=== PATIENT | female | born 1955 | race Caucasian/White ===

== ENCOUNTER → 2018-10-16 | Outpatient (CLI) | payer OTHER, SELFPAY ==
[2013-09-03 09:57] VITALS: BMI 43.4
[2018-10-16 12:43] LABS: Hemoglobin A1c 6.5 % (4.2-6.3)
[2018-10-16 12:46] LABS: AST(SGOT) 33 U/L (15-37); Alanine Aminotransfer ALT/SGPT 48 U/L (13-56); Alkaline Phosphatase 72 U/L (45-117); Anion Gap 9 (5-15); BUN 23 mg/dL (7-18); BUN/Creat Ratio 26.3 RATIO (10-20); Chloride 102 mmol/L (98-107); Cholesterol 209 mg/dL (200); Creatinine, Serum 0.87 mg/dL (0.55-1.02); EST Glomerular Filtration Rate 70 mL/min (>60); Est Glom Filt Rate - Afr Amer 84 mL/min (>60); Glucose 118 mg/dL (74-106); High Density Lipoprotein 76 mg/dL; Potassium 3.9 mmol/L (3.5-5.1); Sodium Level 141 mmol/L (136-145); T4 Total, Thyroxin 13.2 ug/dL (4.8-13.9); Thyroid Stim Hormone (TSH) 0.97 uIU/mL (0.358-3.74); Triglycerides 152 mg/dL; Very Low Density Lipoprotein 30 mg/dL (5-40)
[2018-10-16 12:47] LABS: Creatinine, Urine (random) < 13.00 mg/dL (NO RANGE EST.); Microalbumin,Random Urine < 5.0 mg/L (NO RANGE EST.)
== END | disposition home or self-care (01) ==
LOC: MFPLAB 10:55
PROVIDERS: Visit Provider Family Medicine
DX: E11.9 Type 2 diabetes mellitus without complications (principal); E03.9 Hypothyroidism, unspecified; I10 Essential (primary) hypertension
CPT/HCPCS: 36415; 80048; 80061; 80076; 82043; 82570; 83036; 84436; 84443

== ENCOUNTER → 2019-03-20 07:12 | Outpatient (CLI) | payer OTHER, SELFPAY ==
[2013-09-03 09:57] VITALS: BMI 43.4
[2019-03-20 10:35] LABS: Hemoglobin A1c 6.1 % (4.2-6.3)
[2019-03-20 10:47] LABS: Anion Gap 7 (5-15); BUN 28 mg/dL (7-18); BUN/Creat Ratio 39.4 RATIO (10-20); Calcium,Total 9.5 mg/dL (8.5-10.1); Chloride 105 mmol/L (98-107); Creatinine, Serum 0.71 mg/dL (0.55-1.02); EST Glomerular Filtration Rate 89 mL/min (>60); Est Glom Filt Rate - Afr Amer 107 mL/min (>60); Glucose 120 mg/dL (74-106); Potassium 3.6 mmol/L (3.5-5.1); Sodium Level 140 mmol/L (136-145)
== END ==
PROVIDERS: Family Provider Family Medicine; PCP Family Medicine; Referring Provider Family Medicine; Visit Provider Family Medicine
DX: E11.9 Type 2 diabetes mellitus without complications (principal); I10 Essential (primary) hypertension
CPT/HCPCS: 36415; 80048; 83036

== ENCOUNTER → 2020-09-23 10:42 | Outpatient (CLI) | payer OTHER, SELFPAY ==
[2013-09-03 09:57] VITALS: BMI 43.4
[2020-09-23 12:23] LABS: Absolute Neutrophil Count 2.5 X10^3/uL (2.0-7.7); Basophil# 0.03 X10^3/uL; Basophil% 0.7 % (0-1); Eosinophil# 0.08 X10^3/uL; Eosinophils% 1.9 % (0-5); Hemoglobin 13.8 g/dL (12.0-15.0); Lymphocyte % 32.7 % (19-41); Mean Corp Hgb Conc 31.4 g/dL (32-36); Mean Corpuscular Hgb 28.9 pg (27.0-32.0); Mean Corpuscular Volume 92.1 fL (81-99); Mean Platelet Vol. 11.3 fl (6.2-12.0); Monocyte# 0.27 X10^3/uL; Monocyte% 6.3 % (0-10); NRBC Flagged by Analyzer 0 % (0-5); Neutrophil # 2.49 X10^3/uL (2.7-7.7); Neutrophil % 58.2 % (47-70); Platelet Count 163 K/mm3 (150-450); RBC Distribution Width CV 13.5 % (11.6-14.6); RBC Distribution Width SD 46.3 fl (35.1-43.9); Red Blood Count 4.78 M/mm3 (4.2-5.4); White Blood Count 4.3 K/mm3 (4.4-11.0)
[2020-09-23 12:44] LABS: Vitamin B12 355 pg/mL (211-911)
[2020-09-23 12:47] LABS: Hemoglobin A1c 6.4 % (3.8-5.6)
[2020-09-23 13:05] LABS: ALB/GLOB Ratio 1.1 RATIO (0.9-2.4); AST(SGOT) 44 U/L (15-37); Alanine Aminotransfer ALT/SGPT 57 U/L (13-56); Albumin, Serum 3.8 g/dL (3.2-5.0); Alkaline Phosphatase 75 U/L (45-117); Anion Gap 4 (5-15); BUN 22 mg/dL (7-18); BUN/Creat Ratio 30.3 RATIO (10-20); Chloride 106 mmol/L (98-107); Cholesterol 211 mg/dL (200); Creatinine, Serum 0.73 mg/dL (0.55-1.02); EST Glomerular Filtration Rate 86 mL/min (>60); Est Glom Filt Rate - Afr Amer 104 mL/min (>60); Globulin 3.6 g/dL (2.2-4.2); Glucose 117 mg/dL (74-106); High Density Lipoprotein 69 mg/dL; Potassium 3.8 mmol/L (3.5-5.1); Protein, Total 7.4 g/dL (6.4-8.2); Sodium Level 141 mmol/L (136-145); Thyroid Stim Hormone (TSH) 0.62 uIU/mL (0.358-3.74); Triglycerides 128 mg/dL; Very Low Density Lipoprotein 26 mg/dL (5-40)
== END ==
PROVIDERS: PCP Family Medicine; Referring Provider Family Medicine; Visit Provider Family Medicine
DX: E11.9 Type 2 diabetes mellitus without complications (principal); E03.9 Hypothyroidism, unspecified
CPT/HCPCS: 36415; 80053; 80061; 82607; 83036; 84443; 85025

== ENCOUNTER → 2021-03-05 08:07 | Outpatient (CLI) | payer OTHER, SELFPAY ==
[2021-03-05 10:32] LABS: Absolute Lymphocyte Count 1.44 X10^3/uL (0.83-4.51); Absolute Neutrophil Count 2.3 X10^3/uL (2.0-7.7); Basophil# 0.04 X10^3/uL; Eosinophil# 0.07 X10^3/uL; Eosinophils% 1.7 % (0-5); Hematocrit 41.7 % (37-47); Hemoglobin 13.1 g/dL (12.0-15.0); Lymphocyte # 1.44 X10^3/ul (0.83-4.51); Lymphocyte % 34.8 % (19-41); Mean Corp Hgb Conc 31.4 g/dL (32-36); Mean Corpuscular Hgb 29.1 pg (27.0-32.0); Mean Corpuscular Volume 92.7 fL (81-99); Mean Platelet Vol. 11.7 fl (6.2-12.0); Monocyte# 0.25 X10^3/uL; NRBC Flagged by Analyzer 0 % (0-5); Neutrophil # 2.33 X10^3/uL (2.7-7.7); Neutrophil % 56.3 % (47-70); Platelet Count 157 K/mm3 (150-450); RBC Distribution Width CV 13.4 % (11.6-14.6); RBC Distribution Width SD 46.4 fl (35.1-43.9); White Blood Count 4.1 K/mm3 (4.4-11.0)
[2021-03-05 10:49] LABS: Hemoglobin A1c 6.5 % (3.8-5.6)
[2021-03-05 10:50] LABS: Vitamin B12 284 pg/mL (211-911)
[2021-03-05 10:57] LABS: ALB/GLOB Ratio 0.9 RATIO (0.9-2.4); AST(SGOT) 29 U/L (15-37); Alanine Aminotransfer ALT/SGPT 45 U/L (13-56); Albumin, Serum 3.5 g/dL (3.2-5.0); Alkaline Phosphatase 78 U/L (45-117); Anion Gap 6 (5-15); BUN 20 mg/dL (7-18); BUN/Creat Ratio 27.1 RATIO (10-20); Calcium,Total 9.2 mg/dL (8.5-10.1); Chloride 103 mmol/L (98-107); Cholesterol 178 mg/dL (200); Creatinine, Serum 0.74 mg/dL (0.55-1.02); EST Glomerular Filtration Rate 84 mL/min (>60); Est Glom Filt Rate - Afr Amer 102 mL/min (>60); Glucose 122 mg/dL (74-106); High Density Lipoprotein 61 mg/dL; Potassium 3.8 mmol/L (3.5-5.1); Protein, Total 7.5 g/dL (6.4-8.2); Sodium Level 140 mmol/L (136-145); Thyroid Stim Hormone (TSH) 1.19 uIU/mL (0.358-3.74); Triglycerides 101 mg/dL; Very Low Density Lipoprotein 20 mg/dL (5-40)
== END ==
PROVIDERS: PCP Family Medicine; Referring Provider Family Medicine; Visit Provider Family Medicine
DX: E03.9 Hypothyroidism, unspecified (principal); E11.9 Type 2 diabetes mellitus without complications
CPT/HCPCS: 36415; 80053; 80061; 82607; 83036; 84443; 85025

== ENCOUNTER → 2021-10-05 | Outpatient (CLI) | payer OTHER, SELFPAY ==
[2021-10-05 17:44] LABS: Absolute Lymphocyte Count 1.68 X10^3/uL (0.83-4.51); Absolute Neutrophil Count 3.2 X10^3/uL (2.0-7.7); Basophil# 0.02 X10^3/uL; Basophil% 0.4 % (0-1); Eosinophil# 0.05 X10^3/uL; Eosinophils% 0.9 % (0-5); Hematocrit 43.4 % (37-47); Hemoglobin 13.7 g/dL (12.0-15.0); Lymphocyte # 1.68 X10^3/ul (0.83-4.51); Lymphocyte % 31.3 % (19-41); Mean Corp Hgb Conc 31.6 g/dL (32-36); Mean Corpuscular Hgb 28.7 pg (27.0-32.0); Mean Platelet Vol. 11.3 fl (6.2-12.0); Monocyte# 0.36 X10^3/uL; Monocyte% 6.7 % (0-10); NRBC Flagged by Analyzer 0 % (0-5); Neutrophil # 3.24 X10^3/uL (2.7-7.7); Neutrophil % 60.3 % (47-70); Platelet Count 170 K/mm3 (150-450); RBC Distribution Width CV 13.7 % (11.6-14.6); RBC Distribution Width SD 46.6 fl (35.1-43.9); Red Blood Count 4.77 M/mm3 (4.2-5.4); White Blood Count 5.4 K/mm3 (4.4-11.0)
[2021-10-05 18:08] LABS: Hemoglobin A1c 6.7 % (3.8-5.6)
[2021-10-05 18:18] LABS: AST(SGOT) 33 U/L (15-37); Alanine Aminotransfer ALT/SGPT 46 U/L (13-56); Albumin, Serum 3.7 g/dL (3.2-5.0); Alkaline Phosphatase 70 U/L (45-117); Anion Gap 5 (5-15); BUN 16 mg/dL (7-18); BUN/Creat Ratio 23.3 RATIO (10-20); Calcium,Total 9.2 mg/dL (8.5-10.1); Chloride 103 mmol/L (98-107); Cholesterol 204 mg/dL (200); Creatinine, Serum 0.69 mg/dL (0.55-1.02); EST Glomerular Filtration Rate 91 mL/min (>60); Est Glom Filt Rate - Afr Amer 110 mL/min (>60); Globulin 3.8 g/dL (2.2-4.2); Glucose 102 mg/dL (74-106); High Density Lipoprotein 58 mg/dL; Potassium 3.8 mmol/L (3.5-5.1); Protein, Total 7.5 g/dL (6.4-8.2); Sodium Level 138 mmol/L (136-145); Thyroid Stim Hormone (TSH) 0.69 uIU/mL (0.358-3.74); Triglycerides 104 mg/dL; Very Low Density Lipoprotein 21 mg/dL (5-40)
[2021-10-05 18:22] LABS: Vitamin B12 332 pg/mL (211-911)
== END | disposition home or self-care (01) ==
LOC: MTLAB 14:46
PROVIDERS: PCP Family Medicine; Referring Provider Family Medicine; Visit Provider Family Medicine
DX: E11.9 Type 2 diabetes mellitus without complications (principal); E03.9 Hypothyroidism, unspecified
CPT/HCPCS: 36415; 80053; 80061; 82607; 83036; 84443; 85025

== ENCOUNTER 2021-12-16 16:20 | Emergency (ER) | payer MEDICARE, SELFPAY ==
[2021-12-16 16:22] VITALS: BP 175/79; PULSE 66; RESP 14; TEMP 35.7; O2SAT 98; BMI 44.3
--- NOTE | 2021-12-16 16:42 | ED.VIS.LOWEX ---
HPI History of Present Illness Chief Complaint: Lower Extremity Injury Informant: patient Narrative Narrative: Presents with some left leg intermittent swelling and pain. This has been going on a little while. But she states she has had a knee replacement the left side. She had a significant tendon injury back in May. She just thought this was a healing process. She talked to her harvest supervisor about this and saw her. Her harvest supervisor was concerned so she ordered an ultrasound which does show positive posterior tibial vein with an acute DVT. There is also a superficial saphenous vein that has a chronic superficial thrombophlebitis. No chest pain no shortness of breath. Otherwise the patient feels fine. It does get worse if she is on her legs for a long time better if she rests. PFSH PFSH Home Medications atenolol 25 mg tablet 25 mg PO DAILY 03/21/13 [History Last Taken 09/03/13 06:00] furosemide 40 mg tablet 40 mg PO DAILY 03/21/13 [History Last Taken 07/08/13 08:00] levothyroxine 88 mcg tablet 88 mcg PO DAILY 03/21/13 [History Last Taken 07/09/13 04:00] multivitamin with folic acid 400 mcg tablet (Thera) 1 tab PO DAILY 03/21/13 [History Last Taken 07/08/13 08:00] oxycodone 20 mg tablet,crush resistant,extended release 12 hr (OxyContin) 20 mg PO Q12H ##30 07/10/13 [Rx Last Taken Unknown] oxycodone-acetaminophen 5 mg-325 mg tablet 1 - 2 tab PO Q4H PRN PRN PAIN ##60 07/10/13 [Rx Last Taken Unknown] montelukast 10 mg tablet 10 mg PO DAILY 09/03/13 [History Last Taken Unknown] naproxen sodium 220 mg tablet (Aleve) 2 tab PO BID 09/03/13 [History Last Taken Unknown] apixaban 5 mg tablet (Eliquis) 5 mg PO BID #74 tabs 12/16/21 [Rx Last Taken Unknown] Allergy/AdvReac Type Severity Reaction Status Date / Time latex Allergy Rash Verified 12/16/21 16:21 Surgical History (Updated 12/16/21 @ 16:46 by Ashlyn Rodriguez) Hx of appendectomy Hx of hysterectomy Hx of toe surgery Hx of total knee replacement Social History Smoking Status: Never smoker ROS ROS ED Constitutional Constitutional ED: Denies fever(s) or subjective ENT ENT ED: Denies rhinorrhea or sore throat Cardiovascular Cardiovascular: Denies chest pain, palpitations or racing heartbeat Respiratory/Chest Respiratory/Chest: Denies cough, dyspnea or dyspnea on exertion Gastrointestinal Gastrointestinal: Denies nausea or vomiting Genitourinary Genitourinary ED: Denies hematuria Musculoskeletal Musculoskeletal: Reports other Details: Left leg pain as in history of present illness. Integumentary Denies Abrasions or rash Neurologic Neurologic: Denies paresthesias or weakness Hematologic/Lymphatic Hematologic/Lymphatic: Denies easy bleeding or easy bruising Allergic/Immunologic Allergic/Immunologic ED: Denies urticaria EXAM Physical Exam Const Vital Signs: 12/16/21 16:22 Temperature 96.3 F L Temperature Source Temporal Pulse Rate 66 Respiratory Rate 14 Blood Pressure 175/79 H Blood Pressure Mean 111 Pulse Ox 98 Oxygen Delivery Method Room Air Positive well nourished and well developed General Appearance ED: well developed and NAD HEENT Reports moist mucous membranes atraumatic Resp normal respiratory effort Cardio regular rate Extremity normal to inspection Extremity Narrative: There is no erythema warmth or notable swelling. No distended veins. She does have some mild tenderness in the posterior calf but I do not feel a cord. No notable effusion. Pulses are normal. Neuro Sensorium / Orientation: alert Psych mental status grossly normal Skin no wounds MDM MDM MDM Narrative Medical decision making narrative: I reviewed the ultrasound. We discussed options. This is a below the knee DVT. But she has some risks with some recent injury and relative immobility. She is also having symptoms related to this. We will initiate therapy. This will need repeat ultrasound to make sure it resolves. We discussed the risks of anticoagulation including head injury and evaluations for this. We discussed increased bleeding. We discussed having repeat ultrasounds as they will need to follow this closely. First dose will be given here. Discharge Plan Triage Chief Complaint: Lower Extremity Injury ED Provider: Koffi Alvarenga Dx/Rx/DC Orders Clinical Impression: Acute deep vein thrombosis (DVT) of left lower extremity Instructions: ED Deep Vein Thrombosis (DVT) Prescriptions: New Eliquis 5 mg tablet 5 mg PO BID Qty: 74 0RF Rx Instructions: 10 mg twice a day for the first week. Then 5 mg twice a day. No Action furosemide 40 MG tablet 40 mg PO DAILY Label Comments: WATER PILL atenolol 25 MG tablet 25 mg PO DAILY Label Comments: BLOOD PRESSURE levothyroxine 88 MCG tablet 88 mcg PO DAILY Label Comments: THYROID multivitamin with folic acid [Thera] 1 TABLET tablet 1 tab PO DAILY Label Comments: SUPPLEMENT oxycodone-acetaminophen 1 TABLET tablet 1 - 2 tab PO Q4H PRN PRN (Reason: PAIN) Qty: 60 0RF Label Comments: PAIN oxycodone [OxyContin] 20 MG tablet 20 mg PO Q12H Qty: 30 0RF Label Comments: PAIN naproxen sodium [Aleve] 220 MG tablet 2 tab PO BID montelukast 10 MG tablet 10 mg PO DAILY Primary Care Provider: Mildred Sandoval Referrals: Mildred Sandoval MD [Primary Care Provider] - 3-5 Days Disposition Disposition: Home, Self Care
[2021-12-16] MEDS: APIXABAN 5 MG TABLET 10 MG PO (16:55)
== END 2021-12-16 16:56 | disposition home or self-care (01) ==
PROVIDERS: Emergency Provider Emergency Medicine; PCP Family Medicine; Visit Provider Emergency Medicine
DX: I82.442 Acute embolism and thrombosis of left tibial vein (principal); Z96.652 Presence of left artificial knee joint; Z79.01 Long term (current) use of anticoagulants
CPT/HCPCS: 93971; 99281

== ENCOUNTER → 2021-12-16 | Outpatient (CLI) | payer MEDICARE, SELFPAY ==
--- NOTE | 2021-12-16 15:31 | VDLE_ITS ---
Reason For Study: LLE Pain RIGHT LEFT CFV is compressible, spontaneous, phasic, GSV is normal. competent and demonstrates normal CFV is compressible, spontaneous, phasic, augmentation. competent, and demonstrates normal Procedure augmentation. This is a venous duplex using B-mode, color FV is compressible, spontaneous, phasic, flow and spectral Doppler. competent and demonstrates normal Exam performed in department. augmentation. A preliminary report was called and/or faxed POP V is compressible, spontaneous, phasic, to Dr. Wong. competent and demonstrates normal augmentation. T/P Trunk is compressible. LT PerV is compressible. Lt PTV is dilated and non compressible at mid calf consistent with acute DVT Lt SSV is partially compressible with bright intraluminal echoes consistent with chronic SVT. VL/Venous Duplex US, Unilateral Interpretation Summary Acute deep vein thrombosis is noted in the left posterior tibial vein. The ulises maribell of the left lower extremity deep venous system is patent and compressible. Valvular compete nce appears intact within the proximal deep venous system on the left . The left great saphenous v ein appears patent and compressible segmentally. Chronic venous changes are noted in the left smal l saphenous vein, which is partially compressible and demonstrates bright intraluminal echogenici ty. Ordering Physician: Yvette Wong Referring Physician: Mildred Sandoval Performed By: Fany Lopes, TIPCS, RVT
== END | disposition home or self-care (01) ==
LOC: CVS 15:29
PROVIDERS: PCP Family Medicine; Referring Provider Podiatrist; Visit Provider Podiatrist
DX: M79.605 Pain in left leg (principal); R60.0 Localized edema
CPT/HCPCS: 93971

== ENCOUNTER → 2022-03-03 | Outpatient (CLI) | payer MEDICARE, SELFPAY ==
--- NOTE | 2022-03-03 13:25 | VDLE_ITS ---
Reason For Study: HX of DVT RIGHT LEFT CFV is compressible, spontaneous, phasic, GSV is normal. competent and demonstrates normal CFV is compressible, spontaneous, phasic, augmentation. competent, and demonstrates normal Procedure augmentation. This is a venous duplex using B-mode, color FV is compressible, spontaneous, phasic, flow and spectral Doppler. competent and demonstrates normal Exam performed in department. augmentation. The exam was diagnostic. POP V is compressible, spontaneous, phasic, A preliminary report was called and/or faxed competent and demonstrates normal to Dr. Sandoval. augmentation. T/P Trunk is compressible. LT PTV is partially compressible with areas of mixed echogenicity and decreased spontaneity. LT PerV is compressible. VL/Venous Duplex US, Unilateral Interpretation Summary Chronic deep venous thrombosis left posterior tibial vein. Patent and compressible left great saphenous vein Normal flow patterns right common femoral vein Improvement is noted from the previous examination of December 16, 2021 Ordering Physician: Mildred Sandoval Referring Physician: Mildred Sandoval Performed By: Mg Beyer RVT
[2022-03-03 15:12] LABS: Absolute Lymphocyte Count 1.72 X10^3/uL (0.83-4.51); Absolute Neutrophil Count 3.4 X10^3/uL (2.0-7.7); Basophil# 0.03 X10^3/uL; Basophil% 0.5 % (0-1); Eosinophil# 0.06 X10^3/uL; Eosinophils% 1.1 % (0-5); Hematocrit 43.1 % (37-47); Hemoglobin 13.9 g/dL (12.0-15.0); Lymphocyte # 1.72 X10^3/ul (0.83-4.51); Lymphocyte % 30.6 % (19-41); Mean Corp Hgb Conc 32.3 g/dL (32-36); Mean Corpuscular Hgb 29.6 pg (27.0-32.0); Mean Corpuscular Volume 91.9 fL (81-99); Monocyte# 0.37 X10^3/uL; Monocyte% 6.6 % (0-10); NRBC Flagged by Analyzer 0 % (0-5); Neutrophil # 3.44 X10^3/uL (2.7-7.7); Platelet Count 167 K/mm3 (150-450); RBC Distribution Width CV 13.6 % (11.6-14.6); RBC Distribution Width SD 46.3 fl (35.1-43.9); Red Blood Count 4.69 M/mm3 (4.2-5.4); White Blood Count 5.6 K/mm3 (4.4-11.0)
[2022-03-03 15:27] LABS: Vitamin B12 347 pg/mL (211-911)
[2022-03-03 15:29] LABS: Hemoglobin A1c 6.3 % (3.8-5.6)
[2022-03-03 15:39] LABS: AST(SGOT) 25 U/L (15-37); Alanine Aminotransfer ALT/SGPT 35 U/L (13-56); Albumin, Serum 3.9 g/dL (3.2-5.0); Alkaline Phosphatase 71 U/L (45-117); Anion Gap 6 (5-15); BUN 17 mg/dL (7-18); BUN/Creat Ratio 23.4 RATIO (10-20); Calcium,Total 9.4 mg/dL (8.5-10.1); Chloride 103 mmol/L (98-107); Cholesterol 129 mg/dL (200); Creatinine, Serum 0.73 mg/dL (0.55-1.02); EST Glomerular Filtration Rate 86 mL/min (>60); Est Glom Filt Rate - Afr Amer 104 mL/min (>60); Globulin 3.9 g/dL (2.2-4.2); Glucose 108 mg/dL (74-106); High Density Lipoprotein 69 mg/dL; Potassium 3.2 mmol/L (3.5-5.1); Protein, Total 7.8 g/dL (6.4-8.2); Sodium Level 139 mmol/L (136-145); Triglycerides 73 mg/dL; Very Low Density Lipoprotein 15 mg/dL (5-40)
== END | disposition home or self-care (01) ==
PROVIDERS: PCP Family Medicine; Referring Provider Family Medicine; Visit Provider Family Medicine
DX: I82.442 Acute embolism and thrombosis of left tibial vein (principal); E66.01 Morbid (severe) obesity due to excess calories; E11.9 Type 2 diabetes mellitus without complications; E03.9 Hypothyroidism, unspecified; G43.909 Migraine, unspecified, not intractable, without status migrainosus
CPT/HCPCS: 36415; 80053; 80061; 82607; 83036; 84443; 85025; 93971

== ENCOUNTER → 2022-04-03 | Outpatient (CLI) | payer MEDICARE, SELFPAY ==
--- NOTE | 2022-04-03 07:45 | MRI_ITS ---
STUDY: MRI LEFT ANKLE WITHOUT CONTRAST REASON FOR EXAM: Female, 66 years old. LEFT posterior foot painPain posterior left foot medial heel area TECHNIQUE: Standardized fat and water weighted pulse sequences were obtained in all 3 orthogonal planes. COMPARISON: X-ray of the left foot dated May 27, 2021. FINDINGS: A small plantar calcaneal spur is present at the midline. There is also moderate thickening and degeneration of the medial band of the plantar fascia at its insertion on the calcaneus. No complete tears or retraction of the plantar fascia are present. The remaining aspects of the plantar fascia are normal. Mild reactive vascular signal is seen in the posterior and midline aspect of the calcaneus. No marrow edema or fractures or osteochondral defects are present. Small ankle joint effusion noted. A small subchondral cyst is present in the medial aspect of the tibial plafond. There is mild to moderate cortical osteophyte formation on the dorsal surface of the navicular first and second cuneiform articulations and at the base of the second TMT articulation. The second TMT joint space is also mildly narrowed and there is mild reactive/degenerative edema/signal within the cuneiform. Small intraosseous cysts are present in the cuneiforms and the metatarsal bases. Mild subcutaneous edema is present around the ankle and foot. Normal subcutis adipose space. Normal posterior tibialis tendon. Normal flexor digitorum longus tendon. Normal flexor hallucis longus tendon. Normal peroneus longus and brevis tendons. Normal tibialis anterior tendon. Normal extensor hallucis longus tendon. Normal extensor digitorum longus tendons. Normal Achilles tendon and teno-osseous insertion. Normal plantar fascia. Normal plantar calcaneal tubercles. Normal intrinsic muscles of the rearfoot. Normal distal tibiofibular syndesmotic ligamentous complex. Normal lateral ligamentous complex. Normal subtalar ligaments and sinus tarsi. Normal deltoid ligamentous complexes. Normal plantar calcaneonavicular (spring) ligament. Normal tibiotalar articulation. Normal talar dome. Normal subtalar articulations. Normal talonavicular articulation. Normal calcaneocuboid articulation. MRI/Lower Ext Joint Only (Routine) IMPRESSION: 1. Small plantar calcaneal spur. 2. Moderate thickening and degeneration of the medial band of the plantar fascia at its calcaneal insertion site 3. Mild to moderate arthritic changes of the midfoot involving the tarsal bones and TMT articulations. 4. Small ankle joint effusion. Electronically Signed: Jared Forde MD at 12:45 EST ,
== END | disposition home or self-care (01) ==
PROVIDERS: PCP Family Medicine; Referring Provider Podiatrist; Visit Provider Podiatrist
DX: M76.822 Posterior tibial tendinitis, left leg (principal); M19.072 Primary osteoarthritis, left ankle and foot; M77.32 Calcaneal spur, left foot; R60.0 Localized edema
CPT/HCPCS: 73721

== ENCOUNTER → 2023-10-03 | Outpatient (CLI) | payer OTHER, SELFPAY ==
[2023-10-03 13:14] LABS: Absolute Lymphocyte Count 1.78 X10^3/uL (0.83-4.51); Absolute Neutrophil Count 6.1 X10^3/uL (2.0-7.7); Basophil# 0.04 X10^3/uL; Basophil% 0.5 % (0-1); Eosinophil# 0.05 X10^3/uL; Eosinophils% 0.6 % (0-5); Erythrocyte Sedimentation Rate 48 mm/hr (0-30); Hemoglobin 12.2 g/dL (12.0-15.0); Lymphocyte # 1.78 X10^3/ul (0.83-4.51); Lymphocyte % 21.3 % (19-41); Mean Corp Hgb Conc 31.3 g/dL (32-36); Mean Corpuscular Hgb 27.9 pg (27.0-32.0); Mean Platelet Vol. 11.3 fl (6.2-12.0); Monocyte# 0.39 X10^3/uL; Monocyte% 4.7 % (0-10); NRBC Flagged by Analyzer 0 % (0-5); Neutrophil # 6.06 X10^3/uL (2.7-7.7); Neutrophil % 72.4 % (47-70); Platelet Count 239 K/mm3 (150-450); RBC Distribution Width CV 12.9 % (11.6-14.6); RBC Distribution Width SD 42.5 fl (35.1-43.9); Red Blood Count 4.38 M/mm3 (4.2-5.4); White Blood Count 8.4 K/mm3 (4.4-11.0)
== END | disposition home or self-care (01) ==
PROVIDERS: Referring Provider Orthopaedic Surgery; Visit Provider Orthopaedic Surgery
DX: M17.12 Unilateral primary osteoarthritis, left knee (principal); I10 Essential (primary) hypertension
CPT/HCPCS: 36415; 85025; 85652; 86140

== ENCOUNTER 2023-11-28 14:18 | Emergency (ER) | payer MEDICARE, SELFPAY ==
[2023-11-28 14:18] VITALS: BP 122/63; PULSE 60; RESP 18; TEMP 36.2; O2SAT 96; BMI 35.1
--- NOTE | 2023-11-28 14:46 | CT_ITS ---
STUDY: CT FACIAL BONES WITHOUT CONTRAST REASON FOR EXAM: Female, 67 years old. Fall left facial swelling RADIATION DOSAGE (If Supplied By Facility): CTDIvol = ( 29.38 ) mGy, DLP = ( 569.49 ) mGycm TECHNIQUE: The patient was scanned in a multi detector CT scanner. Sagittal and coronal images were reconstructed. Individualized dose optimization techniques were used for this CT. COMPARISON: None. FINDINGS: Normal soft tissue structures. Normal orbital bernard and orbital contents. Normal nasal bones and anterior nasal spine. Normal facial bones. There is no demonstrated fracture. Normal visualized paranasal sinuses. Hypertrophy of the inferior turbinate in the left nasal fossa. CT/Sinus/Facial Bone IMPRESSION: Normal unenhanced CT of the facial bones. Electronically Signed: Enrique Espinoza MD at 15:22 EDT ,
--- NOTE | 2023-11-28 14:46 | CT_ITS ---
STUDY: CT CERVICAL SPINE WITHOUT CONTRAST REASON FOR EXAM: Female, 67 years old. Neck pain following a fall. RADIATION DOSAGE (If Supplied By Facility): CTDIvol = ( 19.97 ) mGy, DLP = ( 360.18 ) mGycm TECHNIQUE: High resolution transaxial imaging was performed without contrast material. Sagittal and coronal images were reconstructed. Individualized dose optimization techniques were used for this CT. COMPARISON: None FINDINGS: Normal craniovertebral junction. There are degenerative changes of the anterior atlantoaxial articulation. Normal odontoid process. There is straightening of the normal cervical lordosis. Normal vertebral bodies and posterior osseous elements. C2-3: Normal endplates. Normal disc height and morphology. Normal central canal and intervertebral neuroforamina. C3-4: Facet joint osteoarthritis and hypertrophy worse on the right side. No significant stenosis seen. C4-5: Moderate degree of disc space narrowing. Uncovertebral arthrosis. Mild degree of right neural foraminal stenosis. C5-6: Marked degree of disc space narrowing. Spondylosis. Uncovertebral arthrosis. Bilateral neural foraminal stenosis worse on the left side as well as a mild degree of central canal stenosis. C6-7: Moderate degree of disc space narrowing. Spondylosis. Uncovertebral arthrosis. Moderate to marked degree of right neural foraminal stenosis. C7-T1: Normal endplates. Normal disc height and morphology. Normal central canal and intervertebral neuroforamina. Normal visualized soft tissue structures. CT/Spine Cervical without Contras IMPRESSION: Multilevel degenerative changes, as described above. Electronically Signed: Enrique Espinoza MD at 15:24 EDT ,
--- NOTE | 2023-11-28 14:46 | CT_ITS ---
STUDY: CT BRAIN WITHOUT CONTRAST REASON FOR EXAM: Female, 67 years old. Fall RADIATION DOSAGE (If Supplied By Facility): CTDIvol = ( 44.99 ) mGy, DLP = ( 779.24 ) mGycm TECHNIQUE: Transaxial CT imaging of the brain was performed without administration of intravenous contrast material. Individualized dose optimization techniques were used for this CT. COMPARISON: No relevant priors. FINDINGS: Normal soft tissue structures. Normal calvarium. Normal size ventricles and extra-axial spaces for the patient''s age. Normal white matter tracts of the cerebral hemispheres. Normal basal ganglia and thalami. Normal brainstem. Normal cerebellum. There is no intracranial hemorrhage. There are no findings of an acute ischemic infarction. Normal visualized paranasal sinuses. CT/Brain/Head without Contrast IMPRESSION: Normal unenhanced CT scan of the brain. Electronically Signed: Enrique Espinoza MD at 15:21 EDT ,
--- NOTE | 2023-11-28 14:47 | EKG12_ITS ---
Test Reason : FALL Blood Pressure : / mmHG Vent. Rate : 053 BPM Atrial Rate : 053 BPM P-R Int : 126 ms QRS Dur : 106 ms QT Int : 434 ms P-R-T Axes : 012 -05 000 degrees QTc Int : 407 ms Sinus bradycardia Otherwise normal ECG Confirmed by Viktor Benson ([id number]), editor sound KIKE ABBOTT ([id number]) on 11/29/2023 2:07:54 PM Referred By: Confirmed By:Viktor Benson
[2023-11-28] MEDS: Acetaminophen 500 MG Tablet 1000 MG PO (15:23)
[2023-11-28] MEDS: Diphth,Pertuss(Acell),Tet Vac 0.5 ML Vial IM (15:23)
--- NOTE | 2023-11-28 15:59 | EDS_ITS ---
HPI History of Present Illness Chief Complaint: Fall Narrative Narrative: Patient is a 67-year-old female Per patient has no past medical history who presented to the emergency department with a chief complaint of fall. Patient states that she was leaving her test today that she had done which was MRI and nerve testing. She states that she was walking outside and noted that she fell off the curb landing face first. Patient states that she did not pass out remembers entire event. Patient denies any blood thinning medications. She states that she is unsure why she fell but denies any pain anywhere else. She states that she feels fine. Patient did note that she had scratches on her face from hitting the pavement. She is unsure when her last tetanus shot was. PFSH PFSH Home Medications ?Medication ?Instructions ?Recorded ?Last Taken ?Type atenolol 25 mg tablet 25 mg PO DAILY 03/21/13 09/03/13 06:00 History furosemide 40 mg tablet 40 mg PO DAILY 03/21/13 07/08/13 08:00 History levothyroxine 88 mcg tablet 88 mcg PO DAILY 03/21/13 07/09/13 04:00 History multivitamin with folic acid 400 1 tab PO DAILY 03/21/13 07/08/13 08:00 History mcg tablet (Thera) oxycodone 20 mg tablet,crush 20 mg PO Q12H ##30 07/10/13 Unknown Rx resistant,extended release 12 hr (OxyContin) oxycodone-acetaminophen 5 mg-325 1 - 2 tab PO Q4H PRN PRN PAIN ##60 07/10/13 Unknown Rx mg tablet montelukast 10 mg tablet 10 mg PO DAILY 09/03/13 Unknown History naproxen sodium 220 mg tablet 2 tab PO BID 09/03/13 Unknown History (Aleve) apixaban 5 mg tablet (Eliquis) 5 mg PO BID #74 tabs 12/16/21 Unknown Rx Allergy/AdvReac Type Severity Reaction Status Date / Time latex Allergy Rash Verified 11/28/23 14:18 Surgical History (Updated 12/16/21 @ 16:46 by Ashlyn Rodriguez) Hx of toe surgery Hx of total knee replacement Hx of hysterectomy Hx of appendectomy Social History Smoking Status: Never smoker ROS ROS ED ROS Narrative Constitutional: Denies any fevers, chills, headaches, lightheadedness, dizziness Eyes: Denies double vision blurry vision change in vision or Cardiovascular: Denies chest pain or palpitations Respiratory: Denies coughing wheezing shortness of breath Abdomen: Denies abdominal pain nausea vomit diarrhea : Denies any urinary symptoms Neurological: Denies any numbness weakness, tingling Musculoskeletal: Denies any musculoskeletal pain Skin: Complains of superficial abrasions to the left face EXAM Physical Exam Narrative Exam Narrative: General: Patient lying in bed rest comfortably did not appear to be in acute distress Head: Atraumatic, normocephalic Eyes: PERRL bilaterally, EOMI bilaterally, no conjunctival injection noted Neck: Soft, supple, trachea midline, no tenderness palpation midline of the cervical spine Cardiovascular: Regular rate and rhythm no murmurs gallops rubs noted Respiratory: Clear to auscultation bilaterally no rales rhonchi or wheeze noted Abdomen: Soft, nondistended, no tenderness palpation Musculoskeletal: All bony prominences palpated and joints taken through full range of motion no pain elicited outside of slight tenderness to palpation over the left side of his face Extremities: +5/5 strength noted in the bilateral upper and lower extremities, no pedal edema on exam Neurological: Patient following commands knew that she was at [facility] year is 2023 Skin: Patient has superficial abrasion over the left side of the face no active bleeding noted no need for laceration repair Const Vital Signs: 11/28/23 14:18 Temperature 97.2 F L Temperature Source Temporal Pulse Rate 60 Respiratory Rate 18 Blood Pressure 122/63 H Blood Pressure Mean 82 Pulse Ox 96 Oxygen Delivery Method Room Air [facility] MDM Narrative Medical decision making narrative: Patient is a 67-year-old female who presented to the emergency department chief complaint of fall. Patient's will have a workup performed here on the differential diagnose includes but limited to facial fracture, mechanical fall, superficial abrasion. Once workup is obtained reviewed she will be reevaluated. Patient's tetanus shot was updated here today. Patient's CT head and brain showed normal unenhanced CT of the brain no intracranial hemorrhage noted. Patient CT cervical spine showed no acute fractures or dislocations there is mild degenerative changes noted. Patient's facial bone showed normal unenhanced CT of the facial bones. Patient was ambulated here in the emergency department and did well if she would like to go home at this point time. She was encouraged to return with worsening symptoms or any concerns. She is encouraged to follow-up with her primary care physician in 2 to 3 days. She is agreeable to plan all question concerns answered she will be discharged home in stable condition Radiography Diagnostic Testing: Clinical Impression(s) from Imaging Studies Brain CT 11/28/23 14:46 IMPRESSION: Normal unenhanced CT scan of the brain. Electronically Signed: Enrique Espinoza MD at 15:21 EDT , Cervical Spine CT 11/28/23 14:46 IMPRESSION: Multilevel degenerative changes, as described above. Electronically Signed: Enrique Espinoza MD at 15:24 EDT , Facial/Sinus 11/28/23 14:46 IMPRESSION: Normal unenhanced CT of the facial bones. Electronically Signed: Enrique Espinoza MD at 15:22 EDT , Discharge Plan Triage Chief Complaint: Fall ED Provider: Chance Alicea Dx/Rx/DC Orders Clinical Impression: Fall, Superficial abrasion Prescriptions: No Action furosemide 40 MG tablet 40 mg PO DAILY Patient Comments: WATER PILL atenolol 25 MG tablet 25 mg PO DAILY Patient Comments: BLOOD PRESSURE levothyroxine 88 MCG tablet 88 mcg PO DAILY Patient Comments: THYROID multivitamin with folic acid [Thera] 1 TABLET tablet 1 tab PO DAILY Patient Comments: SUPPLEMENT oxycodone-acetaminophen 1 TABLET tablet 1 - 2 tab PO Q4H PRN PRN (Reason: PAIN) Qty: 60 0RF Patient Comments: PAIN oxycodone [OxyContin] 20 MG tablet 20 mg PO Q12H Qty: 30 0RF Patient Comments: PAIN naproxen sodium [Aleve] 220 MG tablet 2 tab PO BID montelukast 10 MG tablet 10 mg PO DAILY Eliquis 5 mg tablet 5 mg PO BID Qty: 74 0RF Rx Instructions: 10 mg twice a day for the first week. Then 5 mg twice a day. Primary Care Provider: Mildred Sandoval Referrals: Mildred Sandoval MD [Primary Care Provider] - Activity Restrictions/Additional Instructions: Your tetanus shot was updated. Keep the areas dry and clean. Return for worsening symptoms or any concerns. Follow-up with your primary care physician in the outpatient setting Print Language: Romansh Disposition Disposition: Home, Self Care
[2023-11-28 16:24] VITALS: BP 117/81; PULSE 79; RESP 16; TEMP 36.4; O2SAT 97
== END 2023-11-28 16:25 | disposition home or self-care (01) ==
PROVIDERS: Emergency Provider Emergency Medicine; PCP Family Medicine; Visit Provider Emergency Medicine
DX: S00.81XA Abrasion of other part of head, initial encounter (principal); W10.1XXA Fall (on)(from) sidewalk curb, initial encounter; R00.1 Bradycardia, unspecified; Z23 Encounter for immunization; Z79.01 Long term (current) use of anticoagulants; Z79.890 Hormone replacement therapy; Z79.899 Other long term (current) drug therapy
CPT/HCPCS: 70450; 70486; 72125; 90715; 93005; 99282

== ENCOUNTER → 2023-11-28 | Outpatient (CLI) | payer MEDICARE, SELFPAY ==
--- NOTE | 2023-11-28 11:00 | MRI_ITS ---
ACR Level 3 findings have been noted. An addendum which confirms receipt of the report will follow. HISTORY: SPINAL STENOSIS, CERVICAL REGION. TECHNIQUE: Multiplanar and multisequence MR images of the cervical spine were obtained without contrast. 239 images. COMPARISON: CT same day. FINDINGS: VERTEBRAE: Vertebral body heights maintained. Degenerative endplate changes of C4-5, C5-6, and C6-7. No other significant bone marrow signal abnormality. VERTEBRAL ALIGNMENT: Straightening of the cervical lordosis without anterior or posterior subluxation. SPINAL CORD: Nonexpansile increased T2 signal at the C5-6 level. SOFT TISSUES: No prevertebral fluid collection. INTERVERTEBRAL DISCS: Posterior disc bulge osteophyte complexes with uncovertebral and facet arthropathy superimposed on a developmentally narrow spinal canal. C2-3: Moderate central canal stenosis. No significant foraminal narrowing. C3-4: Moderate central canal stenosis. Mild bilateral foraminal narrowing. C4-5: Severe central canal stenosis with left ventral cord impingement. Moderate right and mild left foraminal narrowing. C5-6: Severe central canal stenosis with moderate cord impingement/mild cord compression. Severe left and moderate right foraminal narrowing. C6-7: Moderate central canal stenosis and bilateral foraminal narrowing. C7-T1: Mild central canal stenosis and bilateral foraminal narrowing. MRI/Spine Cervical (Routine) IMPRESSION: Multilevel degenerative disc disease superimposed on a developmentally narrow spinal canal resulting in severe spinal canal stenosis and cord impingement at C4-5 and C5-6. Mild cord compression and mild spinal cord edema/myelopathy at C5-6. Moderate spinal canal stenosis at C2-3, C3-4, and C6-7. Bilateral foraminal narrowing as above. Electronically Signed: Peggy Sotelo MD at 12:37 EDT ,
--- NOTE | 2023-11-28 13:39 | NEURO ---
NCS and/or EMG Patient Report Ordering Doctor: Ash Faith DATE OF SERVICE: 11/28/23 Clinical Summary: 67 year old female patient with symptoms of numbness, tingling, and pain in the bilateral upper extremities. A bilateral upper extremity EMG/NCS was performed. Nerve Conduction Studies Summary: The median-D2 SNAP distal latency was prolonged bilaterally. The ulnar-D5 SNAP distal latency was prolonged bilaterally. The median-APB CMAP distal latency was prolonged bilaterally. There was ulnar motor conduction velocity slowing across elbow bilaterally. Needle Examination Summary: Needle examination of select muscles of the bilateral upper extremities demonstrated a higher proportion of motor unit action potentials with reduced recruitment, increased amplitude, increased duration, and polyphasia in the left biceps, bilateral triceps, bilateral flexor carpi radialis, and bilateral first dorsal interosseous muscles. 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
== END | disposition home or self-care (01) ==
LOC: MRI 10:24
PROVIDERS: Referring Provider Orthopaedic Surgery; Visit Provider Orthopaedic Surgery
DX: M54.12 Radiculopathy, cervical region (principal); R20.2 Paresthesia of skin
CPT/HCPCS: 72141; 95886; 95913

== ENCOUNTER 2024-04-26 07:30 | Day surgery (SDC) | payer MEDICARE, SELFPAY ==
[2024-04-24 09:17] VITALS: BMI 27.9
--- NOTE | 2024-04-26 10:29 | PCM.OPRPT ---
Operative Report (Standard) Operative Information Date of Procedure: 04/26/24 Pre-Operative Diagnosis: Presence of dialysis catheter recovery Post-Operative Diagnosis: Same Surgery/Procedure Performed: Removal of tunneled right IJ catheter rehab trainer: No Type of Anesthesia: Local and Sedation,Conscious Procedure Start Time: 09:30 Procedure Stop Time: 09:55 Select all DRAINS/GRAFTS/IMPLANTS that apply: None Estimated Blood Loss: 6 Specimen collected: No Description of surgery: HPI: Patient is a 68-year-old female who previously suffered acute kidney injury requiring dialysis after cardiac arrest from massive pulmonary emboli. After prolonged recovery she had full recovery of her renal function quires dialysis. She is taken now for catheter removal. Description of procedure: Upon obtaining form consent and verification correct patient procedure and site the patient was taken to [facility] [facility] where she was positioned prepped and draped in usual sterile fashion. Timeouts performed conscious sedation administered Versed and fentanyl. Skin and subcutaneous tissue along the tunnel of the catheter was anesthetized 1% lidocaine. Hemostat was used to bluntly dissect the soft tissue surrounding the catheter up to the cuff which was circumferentially dissected free. The catheter was then extracted and manual pressure held at the venous access site for 10 minutes until hemostasis was obtained. Steri-Strips and dry sterile dressing were then applied. The patient was then taken the recovery area with plan discharged to home. Surgical Findings: See above Complications Complications: No
== END 2024-04-26 11:00 | disposition home or self-care (01) ==
PROVIDERS: PCP Internal Medicine; Referring Provider Surgery Trauma Surgery; Visit Provider Surgery Trauma Surgery
DX: I82.409 Acute embolism and thrombosis of unspecified deep veins of unspecified lower extremity (principal); Z95.828 Presence of other vascular implants and grafts; Z86.711 Personal history of pulmonary embolism; Z99.2 Dependence on renal dialysis; Z90.710 Acquired absence of both cervix and uterus; Z86.718 Personal history of other venous thrombosis and embolism; Z86.74 Personal history of sudden cardiac arrest
CPT/HCPCS: 36589; 99152